=== PATIENT | female | born 1975 | race Caucasian/White ===

== ENCOUNTER → 2020-12-11 | Outpatient (CLI) | payer BC, OTHER ==
[~2020-12-11] MED LIST: AMOXICILLIN875 MG PO; LEXAPRO5 MG PO; NORVASC2.5 MG PO; ZYRTEC10 MG PO
== END ==
LOC: CT 09:23
DX: R31.9 Hematuria, unspecified (principal); K76.9 Liver disease, unspecified; N83.8 Other noninflammatory disorders of ovary, fallopian tube and broad ligament
CPT/HCPCS: Q9963; Q9967

== ENCOUNTER → 2021-01-17 | Outpatient (CLI) | payer BC, OTHER | LOC: US 12:35 | DX: N94.9 Unspecified condition associated with female genital organs and menstrual cycle (principal); R31.9 Hematuria, unspecified; Z97.5 Presence of (intrauterine) contraceptive device | CPT/HCPCS: 76830 ==

== ENCOUNTER → 2021-01-31 | Day surgery (SDC) | payer BC, OTHER | END | disposition home or self-care (01) | LOC: OR 11:15 | DX: R31.29 Other microscopic hematuria (principal); I10 Essential (primary) hypertension; Z87.440 Personal history of urinary (tract) infections; Z88.1 Allergy status to other antibiotic agents; Z79.2 Long term (current) use of antibiotics; Z79.899 Other long term (current) drug therapy | CPT/HCPCS: 84703; J7040 ==

== ENCOUNTER → 2021-04-16 | Outpatient (CLI) | payer BC | LOC: MRI 14:37 | DX: D18.03 Hemangioma of intra-abdominal structures (principal); K83.8 Other specified diseases of biliary tract; K76.9 Liver disease, unspecified | CPT/HCPCS: 36415; 74183; 82565; A9577 ==